=== PATIENT | male | born 1985 | race Caucasian/White ===

== ENCOUNTER 2020-11-06 07:35 | Inpatient (IN) | payer SELFPAY ==
[2020-11-06 08:03] LABS: Absolute Lymphocytes (CBC) 1.1 K/uL (0.7-4.9); Basophils % 0.3 % (0-1.3); Hematocrit 44.9 % (39.6-49.0); MPV 8.4 fL (7.6-11.3); RBC Red Blood Cell Count 5.04 M/uL (4.33-5.43)
[2020-11-06] MEDS ORDERED: NA CHLORIDE 0.9% 1,000 ML ONE ×3 (08:09→17:50)
[2020-11-06] MEDS ORDERED: LORazepam 2 MG/ML VIAL ONE ×3 (08:18→22:25)
[2020-11-06 08:29] LABS: ALT/SGPT 41 U/L (12-78); AST/SGOT 34 U/L (15-37); Albumin 4.5 g/dL (3.4-5.0); Alkaline Phosphatase 95 U/L (45-117); BUN Blood Urea Nitrogen 11 mg/dL (7-18); Bicarbonate 25 mmol/L (21-32); Bilirubin Direct 0.1 mg/dL (0-0.2); Bilirubin Total 0.4 mg/dL (0.2-1.0); Glucose Level 140 mg/dL (74-106); Potassium 3.4 mmol/L (3.5-5.1); Protein, Total 7.2 g/dL (6.4-8.2); Sodium Level 139 mmol/L (136-145)
--- NOTE | 2020-11-06 08:29 | RAD REPORT ---
EXAM DESCRIPTION: CT - Head Brain Wo Cont - 11/06/2020 8:19 am CLINICAL HISTORY: Confused;Seizure Headache, drowsiness and seizure COMPARISON: No comparisons TECHNIQUE: All CT scans are performed using dose optimization technique as appropriate and may inclu de automated exposure control or mA/KV adjustment according to patient size. FINDINGS: No intracranial hemorrhage, hydrocephalus or extra-axial fluid collection.No areas of brai n edema or evidence of midline shift. Polypoid mucosal thickening involves the right maxillary sinus, with expansion of the medial wall exp anding into the right nasal cavity. Anterior right ethmoid air cells also opacified. The calvarium is intact. IMPRESSION: No acute intracranial abnormality. Polypoid sinus disease as detailed.
[2020-11-06 09:59] LABS: CSF Glucose 68 mg/dL (40-70)
[2020-11-06] MEDS ORDERED: MIDAZOLAM HCL 2 MG/2 ML INJ ONE ×2 (10:09→10:42)
[2020-11-06 10:16] LABS: Urine Blood Trace-intact (Negative); Urine Glucose Negative (Negative); Urine Protein Negative (Negative)
[2020-11-06 10:19] LABS: Protime INR 1.03
[2020-11-06 10:29] LABS: Barbiturates NEGATIVE (NEGATIVE); Benzodiazepines NEGATIVE (NEGATIVE); Cocaine NEGATIVE (NEGATIVE); METHAMPHETAM NEGATIVE (NEGATIVE); Methadone NEGATIVE (NEGATIVE); Opiates NEGATIVE (NEGATIVE); Phencyclidine NEGATIVE (NEGATIVE); THC Cannibis NEGATIVE (NEGATIVE)
--- NOTE | 2020-11-06 10:41 | ER ---
Nurse's Notes [facility] Name: Willis Hinojosa Age: 35 yrs Sex: Male : 1985 Arrival Date: 11/06/2020 Time: 07:35 Bed 27 Private MD: Diagnosis: Altered mental status, unspecified;Opioid dependence with withdrawal-Kratom;Delirium due to known physiological condition Presentation: 11/06 07:47 Coronavirus screen: Client denies travel out of the [place] in the last 14 days. At this ll1 time, the client does not indicate any symptoms associated with coronavirus-19. Ebola Screen: Patient denies travel to an Ebola-affected area in the 21 days before illness onset. No acute neurological deficit is noted. Initial Sepsis Screen: Does the patient meet any 2 criteria? HR > 90 bpm. No. Patient's initial sepsis screen is negative. Does the patient have a suspected source of infection? No. Patient's initial sepsis screen is negative. Risk Assessment: Do you want to hurt yourself or someone else? Patient reports no desire to harm self or others. Onset of symptoms was November 06, 2020. 07:47 Method Of Arrival: Ambulatory ll1 07:47 Acuity: JADA 2 ll1 07:55 Chief complaint: Spouse and/or significant other states: Ex states they were [facility] camping overnight. At 5 am he awoke and wandered off [place] a swamp. When she found him he was seizing, states it last about 1.5 minutes. Very shaky, hard to walk, slurred speech, not acting right since. Reports taking 5 pills of Benadryl for his chronic hives. Denies drug use. Stroke Activation: Symptom onset < 3 hours Physician: Stroke Attending; Name: ; Notified At: ; Arrived At: Physician: Chief Stroke Resident; Name: ; Notified At: ; Arrived At: Physician: Stroke Resident; Name: ; Notified At: ; Arrived At: Physician: ED Attending; Name: ; Notified At: ; Arrived At: Physician: ED Resident; Name: ; Notified At: ; Arrived At: 07:47 n/a ll1 Historical: - Allergies: 07:48 No Known Allergies; ll1 - PMHx: 07:48 Seizure; ll1 - PSHx: 07:48 Tonsillectomy; ll1 - Immunization history:: Flu vaccine is not up to date. - Social history:: Smoking status: Patient reports the use of cigarette tobacco products, smokes one pack cigarettes per day. Patient uses street drugs, marijuana, Kratom daily. - Family history:: not pertinent. - Hospitalizations: : No recent hospitalization is reported. Screenin:15 Abuse screen: Denies threats or abuse. Denies injuries from another. Nutritional sv screening: No deficits noted. Tuberculosis screening: No symptoms or risk factors identified. Fall Risk None identified. Assessment: 07:52 General: Appears in no apparent distress. comfortable, slender, well developed, sv Behavior is calm, cooperative, appropriate for age. Pain: Denies pain. Neuro: Level of Consciousness is awake, alert, obeys commands, Oriented to person, place, time, situation, Moves all extremities. Full function Speech is normal, Pupils are pinpoint. Neuro: Seizure activity reported prior to arrival. stated by girlfriend, he has grand mal seizures. Cardiovascular: Patient's skin is warm and dry. Rhythm is sinus tachycardia. Respiratory: Airway is patent Respiratory effort is even, unlabored, Respiratory pattern is regular, symmetrical. Derm: Skin is pink, warm \T\ dry. Sand noted all over body. [place] the [place]. Musculoskeletal: Circulation, motion, and sensation intact. Range of motion: intact in all extremities. 08:40 Reassessment: Patient appears in no apparent distress at this time. No changes from sv previously documented assessment. Pt attempting to leave, saying that he wants to go to [facility]. Pt reoriented and able to follow commands at this time. Tio christie at the bedside as a sitter. 09:33 Reassessment: Patient appears in no apparent distress at this time. No changes from sv previously documented assessment. Pt remains confused. Girlfriend is at the bedside. Pt having to be reoriented and is able to follow commands. 10:07 Reassessment: Patient appears in no apparent distress at this time. No changes from sv previously documented assessment. 11:00 Reassessment: Patient appears in no apparent distress at this time. No changes from sv previously documented assessment. Girlfriend at the bedside. 12:06 Reassessment: Dr Martins at the bedside. sv 13:00 Reassessment: Patient appears in no apparent distress at this time. No changes from sv previously documented assessment. 14:05 Reassessment: Patient appears in no apparent distress at this time. No changes from sv previously documented assessment. Vital Signs: 07:47 BP 140 / 105; Pulse 138; Resp 24; Temp 98.2; Pulse Ox 99% ; Pain 0/10; ll1 07:53 BP 134 / 92; Pulse 123 MON; Resp 27; Pulse Ox 100% on R/A; sv 09:26 BP 128 / 74; Pulse 99; Resp 25; Pulse Ox 100% on R/A; sv 10:36 BP 128 / 74; Pulse 100; Resp 20; Pulse Ox 98% on R/A; ph 10:45 BP 129 / 79; Pulse 83; Resp 23; Pulse Ox 99% ; sv 12:00 BP 121 / 77; Pulse 82; Resp 16; Pulse Ox 99% ; sv 14:15 BP 118 / 78; Pulse 80; Resp 16; Pulse Ox 99% ; sv 07:53 Sinus tachycardia sv ED Course: 07:35 Patient arrived in ED. ds1 07:36 Chilo Walker MD is Attending Physician. rn 07:43 Bekah Alexander RN is Primary Nurse. sv 07:47 Arm band placed on. ll1 07:48 Triage completed. ll1 07:49 Patient has correct armband on for positive identification. Bed in low position. Call ll1 light in reach. Side rails up X2. Seizure precautions initiated. youth nutritional monitor on. Pulse ox on. NIBP on. 07:50 EKG done, by ED staff, reviewed by Chilo Walker MD. Inserted saline lock: 20 gauge in sv right antecubital area, using aseptic technique. ,using aseptic technique. done by [facility] tech Blood collected. 07:53 CBC with Diff Sent. sv 07:53 Basic Metabolic Panel Sent. sv 07:53 Acetaminophen Sent. sv 08:13 COVID swab sent to lab. sv 08:19 CT Head Brain wo Cont In Process Unspecified. EDMS 09:15 Assist provider with lumbar puncture: Set up LP tray. Performed by Chilo Walker MD CSF sv is clear. Sample collected. Sample sent to lab. Puncture site dressed with band aid, Procedure was successful. Patient tolerated poorly. 09:17 Csf Culture Sent. sv 09:17 Fluid Cell Count,Body Sent. sv 09:25 Lab(s) recollected, by ED staff, sent to lab. sv 09:35 Awaiting lab results. sv 10:40 Tyshawn Martins is Hospitalizing Provider. rn 12:24 Awaiting bed assignment. sv 14:05 Patient admitted, IV remains in place. intact. sv 14:36 Report given to Yesica TRACY. sv 19:03 Primary Nurse role handed off by Bekah Alexander RN sv Administered Medications: 07:53 CANCELLED (Duplicate Order): Ativan (LORazepam) 1 mg IVP once rn 07:53 Drug: NS 0.9% 1000 ml Route: IV; Rate: 1000 ml; Site: right antecubital; sv 10:42 Follow up: Response: No adverse reaction; IV Status: Completed infusion; IV Intake: sv 1000ml 07:59 Drug: NS 0.9% 1000 ml Route: IV; Rate: 1000 ml; Site: right antecubital; sv 10:42 Follow up: Response: No adverse reaction; IV Status: Completed infusion; IV Intake: sv 1000ml 07:59 Drug: Ativan (LORazepam) 2 mg Route: IVP; Site: right antecubital; sv 09:15 Follow up: Response: No adverse reaction sv 08:56 Drug: Ativan (LORazepam) 2 mg Route: IVP; Site: right antecubital; sv 09:15 Follow up: Response: No adverse reaction sv 09:47 Drug: Versed (midazolam) 2 mg Route: IVP; Site: right antecubital; sv 10:21 Follow up: Response: No adverse reaction sv 10:21 Drug: Versed (midazolam) 2 mg Route: IVP; Site: right antecubital; sv 10:41 Follow up: Response: No adverse reaction sv Intake: 10:42 IV: 1000ml; Total: 1000ml. sv 10:42 IV: 1000ml; Total: 2000ml. sv Outcome: 10:40 Decision to Hospitalize by Provider. rn 14:36 Admitted to ER Hold. Please see [facility] for further documentation. sv 14:36 Condition: stable 14:36 Instructed on the need for admit. 11/07 13:31 Patient left the ED. aa5 Signatures: Dispatcher [employer] EDMS Bekah Alexander RN RN sv Sanford, Demi ds1 Chilo Walker MD MD rn Calderon, Audri, RN RN aa5 Swati Nation RN RN ss Shasha Cisneros RN RN ph Lewis, Lynsay, DEMARCUS RN ll1 Corrections: (The following items were deleted from the chart) 11/06 07:50 07:47 BP 140 / 105; Pulse 138bpm; Resp 18bpm; Pulse Ox 99%; Temp 99.1F; Pain 0/10; ll1 07:58 07:47 BP 140 / 105; Pulse 138bpm; Resp 18bpm; Pulse Ox 99%; Temp 98.2F; Pain 0/10; ss ll1 09:35 08:40 Reassessment: Patient appears in no apparent distress at this time. No changes sv from previously documented assessment. Pt attempting to leave, saying that he wants to go to [facility]. Pt reoeriented and able to follow commands at this time. Tio christie at the bedside as a sitter. sv 11:06 09:26 Social history: Patient uses street drugs, marijuana, Crater daily, sv sv
--- NOTE | 2020-11-06 10:42 | EDPHYS ---
Physician Documentation [facility] Name: Willis Hinojosa Age: 35 yrs Sex: Male : 1985 Arrival Date: 11/06/2020 Time: 07:35 Bed 27 Private MD: ED Physician Chilo Walker HPI: 11/06 07:53 This 35 yrs old Male presents to ER via Ambulatory with complaints of AMS, Slurred rn Speech, Probable Seizure - Prior to Arrival. 07:54 The patient presents with confusion, disorientation, seizure activity. Onset: The rn symptoms/episode began/occurred 3 hour(s) ago. Possible causes: unknown. Associated signs and symptoms: Pertinent positives: confusion, diaphoresis, seizure, Pertinent negatives: abdominal pain, chest pain, headache, shortness of breath, vomiting. Current symptoms: In the emergency department the patient's symptoms are unchanged from the initial presentation. It is unknown whether or not the patient has had similar symptoms in the past. The patient has not recently seen a physician. Ex- reports they were camping, got here yesterday afternoon, was acting ok, this AM around 0500 was confused, altered, sweating, shaking, then noticed 1 maybe 2 seizures, generalized. Has had 1 seizure before in past. Ex- reports patient with hx of drug use and addiction, drinks frequently but not daily, uses "a lot of Kratom everyday", unknown last use, and uses "a lot of benadryl everyday" for unknown hives. Reports found an empty bottle of benadryl today, patient reports took about 5 because of itching. Denies suicidal or homicidal ideation.. Historical: - Allergies: 07:48 No Known Allergies; ll1 - PMHx: 07:48 Seizure; ll1 - PSHx: 07:48 Tonsillectomy; ll1 - Immunization history:: Flu vaccine is not up to date. - Social history:: Smoking status: Patient reports the use of cigarette tobacco products, smokes one pack cigarettes per day. Patient uses street drugs, marijuana, Kratom daily. - Family history:: not pertinent. - Hospitalizations: : No recent hospitalization is reported. ROS: 07:54 Constitutional: Negative for fever, chills, and weight loss, Eyes: Negative for injury, rn pain, redness, and discharge, ENT: Negative for injury, pain, and discharge, Neck: Negative for injury, pain, and swelling, Cardiovascular: Negative for chest pain, and edema, Respiratory: Negative for shortness of breath, cough, wheezing, and pleuritic chest pain, Abdomen/GI: Negative for abdominal pain, nausea, vomiting, diarrhea, and constipation, Back: Negative for injury and pain, : Negative for injury, bleeding, discharge, and swelling, MS/Extremity: Negative for injury and deformity, Skin: Negative for injury, rash, and discoloration, Neuro: Negative for numbness, tingling 07:54 All other systems are negative. rn Exam: 07:54 Constitutional: This is a well developed, well nourished patient who is awake, alert, rn seems delirious Head/Face: Normocephalic, atraumatic. Eyes: Pupils 6mm, reactive, no nystagmus ENT: dry MM Neck: Trachea midline, no masses palpated, and no cervical lymphadenopathy. Supple, full range of motion without nuchal rigidity, or vertebral point tenderness. No Meningismus. Cardiovascular: Tachycardic, regular Respiratory: + tachypnea, no retractions, speaking full sentences Abdomen/GI: soft, non-tender Skin: warm, dry MS/ Extremity: Pulses equal, no cyanosis. Neurovascular intact. Full, normal range of motion. Equal circumference. Neuro: Awake and alert, GCS 15, oriented to person, time, thinks is in [place]. Cranial nerves II-XII grossly intact. Motor strength 5/5 in all extremities. Sensory grossly intact. + tongue fasciculations and tremors in bilateral upper extremities. 08:06 ECG was reviewed by the Attending Physician. rn Vital Signs: 07:47 BP 140 / 105; Pulse 138; Resp 24; Temp 98.2; Pulse Ox 99% ; Pain 0/10; ll1 07:53 BP 134 / 92; Pulse 123 MON; Resp 27; Pulse Ox 100% on R/A; sv 09:26 BP 128 / 74; Pulse 99; Resp 25; Pulse Ox 100% on R/A; sv 10:36 BP 128 / 74; Pulse 100; Resp 20; Pulse Ox 98% on R/A; ph 10:45 BP 129 / 79; Pulse 83; Resp 23; Pulse Ox 99% ; sv 12:00 BP 121 / 77; Pulse 82; Resp 16; Pulse Ox 99% ; sv 14:15 BP 118 / 78; Pulse 80; Resp 16; Pulse Ox 99% ; sv 07:53 Sinus tachycardia sv Procedures: 09:15 Lumbar Puncture: Patient placed in left lateral decubitus position. Prepped with rn Betaterry. Draped using sterile technique. Collected 8 ml's of clear fluid. Sample sent to lab. Puncture site dressed with band aid, Patient tolerated well. Opening pressure 23. MDM: 07:37 Patient medically screened. rn 08:00 Differential Diagnosis: electrolyte abnormality, alcohol intoxication, hypoglycemia, rn overdose, seizure, UTI, volume depletion, withdrawal, kratom withdrawal, benadryl overdose. 08:52 ED course: Pt improving with ativan and fluids, elevated WBC, spoke with patient rn regarding LP given seizure and elevated WBC, no family in room to consent, patient altered, considered emergent consent.. 10:19 ED course: Pt still very agitated despite benzos, improving HR to low 90s and BP rn currently down to 128/74, still arguing with ex-, trying to get out of bed, pull out IV. . 10:38 Data reviewed: vital signs, nurses notes, lab test result(s), EKG, radiologic studies, rn CT scan, and as a result, I will admit patient. Counseling: I had a detailed discussion with the patient and/or guardian regarding: the historical points, exam findings, and any diagnostic results supporting the discharge/admit diagnosis, lab results, radiology results, the need for further work-up and treatment in the hospital. Response to treatment: the patient's symptoms have mildly improved after treatment, and as a result, I will admit patient. Admission orders: after a detailed discussion of the patient's condition and case, the admit orders are written by me. ED course: Pt with grossly neg w/u thus far, CSF partially resulted but normal glucose and TP, afebrile, elevated WBC, clean drug screen. Most likely withdrawal from daily heavy kratom use and superimposed benadryl that he takes significant amounts daily. Will admit to hospitalist service for further care as is not back to baseline. . 11/06 07:51 Order name: Acetaminophen rn 11/06 07:51 Order name: Basic Metabolic Panel rn 11/06 07:51 Order name: CBC with Diff rn 11/06 07:51 Order name: ETOH Level; Complete Time: 08:33 rn 11/06 07:51 Order name: Hepatic Function; Complete Time: 08:33 rn 11/06 07:51 Order name: PT-INR; Complete Time: 10:37 rn 11/06 07:51 Order name: Ptt, Activated; Complete Time: 10:37 rn 11/06 07:51 Order name: Salicylate; Complete Time: 08:33 rn 11/06 07:51 Order name: Urine Drug Screen; Complete Time: 10:37 rn 11/06 07:51 Order name: Procalcitonin; Complete Time: 08:49 rn 11/06 07:51 Order name: Acetaminophen Level; Complete Time: 08:33 EDMS 11/06 07:51 Order name: Basic Metabolic Panel; Complete Time: 08:33 EDMS 11/06 07:51 Order name: CBC with Automated Diff EDMS 11/06 08:04 Order name: Glucose, Ancillary Testing; Complete Time: 08:23 EDMS 11/06 08:23 Order name: Manual Differential EDPR 11/06 09:15 Order name: Csf Culture rn 11/06 09:15 Order name: Fluid Cell Count,Body rn 11/06 09:15 Order name: Spinal Fluid Profile; Complete Time: 11:16 rn 11/06 09:16 Order name: Body Fluid Cell Count; Complete Time: 11:16 EDMS 11/06 09:29 Order name: Strep; Complete Time: 10:19 rn 11/06 09:46 Order name: SARS-COV-2 RT PCR; Complete Time: 10:08 EDMS 11/06 10:14 Order name: Throat Culture EDMS 11/06 10:16 Order name: Urine Dipstick-Ancillary; Complete Time: 10:19 EDMS 11/07 03:56 Order name: CBC with Automated Diff EDMS 11/07 04:09 Order name: Comprehensive Metabolic Panel EDMS 11/07 04:09 Order name: Phosphorus EDMS 11/07 04:09 Order name: Magnesium EDMS 11/07 04:09 Order name: Thyroid Stimulating Hormone EDMS 11/06 07:51 Order name: EKG; Complete Time: 07:51 rn 11/06 07:51 Order name: EKG - Nurse/Tech; Complete Time: 07:53 rn 11/06 07:51 Order name: IV Saline Lock; Complete Time: 07:53 rn 11/06 07:51 Order name: Labs collected and sent; Complete Time: 07:53 rn 11/06 07:51 Order name: Urine Dipstick-Ancillary (obtain specimen); Complete Time: 10:41 rn 11/06 07:53 Order name: CT Head Brain wo Cont; Complete Time: 08:33 rn 11/06 08:53 Order name: Lumbar Puncture Setup; Complete Time: 08:56 rn 11/06 09:13 Order name: Labs - recollect needed: recollect the coag tube; Complete Time: 09:35 eb 11/06 09:15 Order name: LP Consents; Complete Time: 09:17 rn 11/07 12:16 Order name: Basic Metabolic Panel EDMS EC:06 Rate is 129 beats/min. Rhythm is regular. QRS [place] is Normal. MI interval is normal. rn QRS interval is normal. QT interval is normal. No Q waves. T waves are Normal. No ST changes noted. Clinical impression: Sinus tachycardia. Interpreted by me. Reviewed by me. Administered Medications: 07:53 CANCELLED (Duplicate Order): Ativan (LORazepam) 1 mg IVP once rn 07:53 Drug: NS 0.9% 1000 ml Route: IV; Rate: 1000 ml; Site: right antecubital; sv 10:42 Follow up: Response: No adverse reaction; IV Status: Completed infusion; IV Intake: sv 1000ml 07:59 Drug: NS 0.9% 1000 ml Route: IV; Rate: 1000 ml; Site: right antecubital; sv 10:42 Follow up: Response: No adverse reaction; IV Status: Completed infusion; IV Intake: sv 1000ml 07:59 Drug: Ativan (LORazepam) 2 mg Route: IVP; Site: right antecubital; sv 09:15 Follow up: Response: No adverse reaction sv 08:56 Drug: Ativan (LORazepam) 2 mg Route: IVP; Site: right antecubital; sv 09:15 Follow up: Response: No adverse reaction sv 09:47 Drug: Versed (midazolam) 2 mg Route: IVP; Site: right antecubital; sv 10:21 Follow up: Response: No adverse reaction sv 10:21 Drug: Versed (midazolam) 2 mg Route: IVP; Site: right antecubital; sv 10:41 Follow up: Response: No adverse reaction sv Disposition Summary: 11/06/20 10:40 Hospitalization Ordered Hospitalization Status: Inpatient Admission rn Provider: Tyshawn Martins rn Condition: Stable rn Problem: new rn Symptoms: have improved rn Bed/Room Type: Standard rn Location: [facility] ER HOLD(11/06/20 13:46) Room Assignment: ERHOLD-(11/06/20 13:46) ss Diagnosis - Altered mental status, unspecified rn - Opioid dependence with withdrawal - Wanda rn - Delirium due to known physiological condition rn Forms: - Medication Reconciliation Form rn - SBAR form rn Signatures: Dispatcher [employer] EDPR Bekah Alexander RN RN Chilo Walker MD MD rn Smirch, Shelby, RN RN Crystal Max Lynsay, RN RN ll1 Corrections: (The following items were deleted from the chart) 07:53 07:51 Ativan (LORazepam) 1 mg IVP once ordered. rn rn 08:56 08:07 CORONAVIRUS+MR.LAB.BRZ ordered. EDPR EDMS 11:06 09:26 Social history: Patient uses street drugs, marijuana, Crater daily, sv sv 13:46 10:40 Intensive Care Unit rn ss 13:46 10:40 rn ss
[2020-11-06 10:43] LABS: Body Fluid Source CSF; Color of fluid Colorless (COLORLESS)
[2020-11-06 10:44] LABS: Appearance CLEAR (CLEAR)
[2020-11-06 10:45] LABS: Body Fluid WBC 1 /mm^3
[2020-11-06 10:46] LABS: Appearance CLEAR (CLEAR); Body Fluid Source CSF; Color of fluid Colorless (COLORLESS)
[2020-11-06 10:47] LABS: Body Fluid WBC 1 /mm^3
--- NOTE | 2020-11-06 12:47 | P.HP ---
Certification for Inpatient Patient admitted to: Observation With expected LOS: <2 Midnights Practitioner: I am a practitioner with admitting privileges, knowledge of patient current condition, hospital course, and medical plan of care. Services: Services provided to patient in accordance with Admission requirements found in Title 42 Section 412.3 of the Code of Federal Regulations Patient History Date of Service: 11/06/20 Reason for admission: Altered mental status History of Present Illness: 35-year-old gentleman with a history of multiple substance abuse was brought to the emergency department with a complaint of altered mental status, slurred speech and suspected to have had seizures. Patient was confused during my examination in the ED and could not provide reliable history. His ex reports he has been abusing opioid he was using Kratom as a substitute for opioid addiction. His urine toxicology screen is negative. CT head negative. The ED physician performed a lumbar puncture. CSF studies unremarkable. Blood work also significant for severe leukocytosis. Patient suspected to be withdrawing from opioid or other substance. He is admitted for further management. Allergies No Known Allergies Allergy (Unverified 11/06/20 15:39) Home Medications: Diphenhydramine HCl [Benadryl Allergy] 1 tab PO PRN 11/06/20 - Past Medical/Surgical History -: Polysubstance abuse -: Tonsillectomy - Family History Unable to provide history due to confusion History Unknown: Yes - Social History Alcohol use: Yes CD- Drugs: Yes Review of Systems is unable to be obtained Physical Examination - Physical Exam General: In no apparent distress, Oriented x3, Confused HEENT: Atraumatic, Normocephalic, PERRLA, Mucous membr. moist/pink, EOMI, Sclerae nonicteric Neck: Supple, JVD not distended, No Thyromegaly Respiratory: Clear to auscultation bilaterally, Normal air movement Cardiovascular: No edema, Regular rate/rhythm, Normal S1 S2 Capillary refill: <2 Seconds Gastrointestinal: Normal bowel sounds, Soft and benign, Non-distended, No tenderness Musculoskeletal: No clubbing, No swelling, No tenderness Integumentary: No rashes, No erythema Neurological: Normal speech, Normal strength at 5/5 x4 extr, Cranial nerves 3-12 intact Lymphatics: No axilla or inguinal lymphadenopathy - Studies Laboratory Data (last 24 hrs) 11/06/20 09:57: PT 11.9, INR 1.03, APTT 26.8 11/06/20 07:51: WBC 22.40 H*, Hgb 15.2, Hct 44.9, Plt Count 200 11/06/20 07:51: Sodium 139, Potassium 3.4 L, BUN 11, Creatinine 1.00, Glucose 140 H, Total Bilirubin 0.4, AST 34, ALT 41, Alkaline Phosphatase 95 Microbiology Data (last 24 hrs): 11/06/20 09:31 Throat Group A Streptococcus Rapid Screen - Final Assessment and Plan - Problems (Diagnosis) (1) Acute metabolic encephalopathy Current Visit: Yes Status: Acute (2) Substance withdrawal delirium Current Visit: Yes Status: Acute (3) Leukocytosis Current Visit: Yes Status: Acute - Plan Place under observation. Continue supportive measures started in the ED with IV normal saline. Neuro checks Ativan IV p.r.n. for agitation and seizures. Monitor electrolytes. Monitor CBC follow leukocytosis. Obtain blood culture Empiric IV antibiotics - Advance Directives Does patient have a Living Will: No Does patient have a Durable POA for Healthcare: No
[2020-11-06 13:25] LABS: Blood Morphology Comment NOT SEEN (NOT SEEN); Platelet Estimate ADEQ
[2020-11-06 15:39] VITALS: BMI 26.4
[2020-11-06] MEDS ORDERED: ONDANSETRON 4 MG/2 ML VIAL IV PRN (15:49)
[2020-11-06] MEDS ORDERED: LORazepam 2 MG/ML VIAL IV PRN (15:49)
[2020-11-06] MEDS: NA CHLORIDE 0.9% 1,000 ML IV SCH (15:49)
[2020-11-06] MEDS: NICOTINE 21 MG/PAT TD SCH (17:12)
[2020-11-06] MEDS ORDERED: NICOTINE 21 MG/PAT TD ONE (17:50)
[2020-11-06] MEDS ORDERED: VANCOMYCIN 2 GM in NA CHLORIDE 0.9% 500 ML IVPB ONE (21:00)
[2020-11-06] MEDS ORDERED: POTASSIUM 25 MEQ EFFERV TAB PO ONE (21:00)
[2020-11-06] MEDS: CEFEPIME/SWI 1gm 10 ML IV SCH (21:00)
[2020-11-06] MEDS ORDERED: VANCOMYCIN 1.25 GM in NA CHLORIDE 0.9% 250 ML IVPB SCH (21:00)
[2020-11-06] MEDS ORDERED: CEFEPIME 1 GM/VIAL IV SCH (21:00)
[2020-11-06] MEDS ORDERED: NA CHLORIDE 0.9% 0 ML ONE (21:11)
[2020-11-06] MEDS ORDERED: VANCOMYCIN 1 GM/VIAL ONE (21:11)
[2020-11-06] MEDS ORDERED: POTASSIUM 25 MEQ EFFERV TAB ONE (21:11)
[2020-11-06] MEDS ORDERED: CEFEPIME/SWI 1gm 10 ML ONE (21:12)
[2020-11-06] MEDS ORDERED: NA CHLORIDE 0.9% 500 ML ONE (22:17)
[2020-11-07] MEDS: NA CHLORIDE 0.9% 1,000 ML IV SCH ×3 (01:30→09:32)
[2020-11-07 03:47] LABS: Basophils % 0.4 % (0-1.3); Hematocrit 40.1 % (39.6-49.0); Lymphocytes % 18.8 % (15.3-44.8); MPV 8.3 fL (7.6-11.3); RBC Red Blood Cell Count 4.47 M/uL (4.33-5.43)
[2020-11-07 04:09] LABS: ALT/SGPT 28 U/L (12-78); AST/SGOT 20 U/L (15-37); Albumin 3.7 g/dL (3.4-5.0); Alkaline Phosphatase 73 U/L (45-117); BUN Blood Urea Nitrogen 10 mg/dL (7-18); Bicarbonate 25 mmol/L (21-32); Bilirubin Total 0.7 mg/dL (0.2-1.0); Glucose Level 85 mg/dL (74-106); Magnesium 2.2 mg/dL (1.8-2.4); Phosphorus 2.5 mg/dL (2.5-4.9); Potassium 3.6 mmol/L (3.5-5.1); Protein, Total 6.2 g/dL (6.4-8.2); Sodium Level 142 mmol/L (136-145); Thyroid Stimulating Hormone 0.374 uIU/mL (0.360-3.740)
[2020-11-07] MEDS ORDERED: CEFEPIME/SWI 1gm 10 ML ONE (08:51)
[2020-11-07] MEDS ORDERED: NICOTINE 21 MG/PAT TD ONE (08:51)
[2020-11-07] MEDS ORDERED: VANCOMYCIN 1.5 GM in NA CHLORIDE 0.9% 500 ML IVPB SCH (09:00)
[2020-11-07] MEDS: CEFEPIME/SWI 1gm 10 ML IV SCH (09:30)
[2020-11-07] MEDS: NICOTINE 21 MG/PAT TD SCH (09:30)
[2020-11-07] MEDS ORDERED: NA CHLORIDE 0.9% 1,000 ML ONE (09:54)
--- NOTE | 2020-11-07 11:16 | P.DS ---
Admission Date: 11/06/20 Discharge Date: 11/07/20 Disposition: ROUTINE DISCHARGE Discharge Condition: FAIR Reason for Admission: Altered mental status - Problems (1) Acute metabolic encephalopathy Current Visit: Yes Status: Acute (2) Substance withdrawal delirium Current Visit: Yes Status: Acute (3) Leukocytosis Current Visit: Yes Status: Acute Brief History of Present Illness: 35-year-old gentleman with a history of multiple substance abuse was brought to the emergency department with a complaint of altered mental status, slurred speech and suspected to have had seizures. Patient was confused during my exam ination in the ED and could not provide reliable history. His ex reports he has been abusing opioid he was using Kratom as a substitute for opioid addiction. His urine toxicology screen is negative. CT head negative. The ED physician performed a lumbar puncture. CSF studies unremarkable. Blood work also significant for severe leukocytosis. Patient suspected to be withdrawing from opioid or other substance. He was admitted for further management. Hospital Course: Patient admitted to the medical floor and treated with supportive measures with IV fluid. Also started on antibiotics for leukocytosis. Patient became fully awake next day, alert and oriented and without any complain. Leukocytosis resolved. Patient denied any suicidal ideation. He reports history of opioid abuse. He aslo uses Kratom for pain. Patient advised to quit abusing illicit substances. He acknowleged and agrees to quit. Patient deemed stable for discharge. Vital Signs/Physical Exam: Temp Pulse Resp BP Pulse Ox 98 F 81 18 124/70 97 11/07/20 04:00 11/07/20 04:00 11/07/20 04:00 11/07/20 04:00 11/07/20 04:00 General: Alert, In no apparent distress, Oriented x3 HEENT: Mucous membr. moist/pink Neck: Supple, JVD not distended Respiratory: Clear to auscultation bilaterally, Normal air movement Cardiovascular: No edema, Regular rate/rhythm, Normal S1 S2 Capillary refill: <2 Seconds Gastrointestinal: Normal bowel sounds, Soft and benign, Non-distended, No tenderness Musculoskeletal: No swelling, No tenderness Integumentary: No rashes, No erythema Neurological: Normal gait, Normal speech, Normal strength at 5/5 x4 extr, Cranial nerves 3-12 intact Laboratory Data at Discharge: WBC 10.60 K/uL (4.3-10.9) D 11/07/20 03:03 Hgb 13.7 g/dL (13.6-17.9) 11/07/20 03:03 Hct 40.1 % (39.6-49.0) 11/07/20 03:03 Plt Count 239 K/uL (152-406) 11/07/20 03:03 PT 11.9 SECONDS (9.5-12.5) 11/06/20 09:57 INR 1.03 11/06/20 09:57 APTT 26.8 SECONDS (24.3-36.9) 11/06/20 09:57 Sodium Cancelled 11/07/20 Unknown Potassium Cancelled 11/07/20 Unknown BUN Cancelled 11/07/20 Unknown Creatinine Cancelled 11/07/20 Unknown Glucose Cancelled 11/07/20 Unknown Phosphorus 2.5 mg/dL (2.5-4.9) 11/07/20 03:03 Magnesium 2.2 mg/dL (1.8-2.4) 11/07/20 03:03 Total Bilirubin 0.7 mg/dL (0.2-1.0) 11/07/20 03:03 AST 20 U/L (15-37) 11/07/20 03:03 ALT 28 U/L (12-78) 11/07/20 03:03 Alkaline Phosphatase 73 U/L (45-117) 11/07/20 03:03 Home Medications: Diphenhydramine HCl [Benadryl Allergy] 1 tab PO PRN 11/06/20 Diet: Regular Activity: Ad senthil Followup: NONE,NONE [Primary Care Provider] - Time spent managing pt's care (in minutes): 35
[2020-11-07 12:16] LABS: BUN Blood Urea Nitrogen 10 mg/dL (7-18); Bicarbonate 27 mmol/L (21-32); Glucose Level 138 mg/dL (74-106); Sodium Level 142 mmol/L (136-145)
[2020-11-07 13:15] VITALS: O2SAT 100
[2020-11-07 13:16] VITALS: BP 136/69; TEMP 98
== END 2020-11-07 12:30 | disposition home or self-care (01) | DRG 896 ==
LOC: ER 07:35 → ERHOLD 12:35
PROVIDERS: ADMIT Internal Medicine; ATTEND Internal Medicine
PROC: 009U3ZX Drainage of Spinal Canal, Percutaneous Approach, Diagnostic (ICD-10-PCS; principal; 2020-11-06)
DX: F11.23 Opioid dependence with withdrawal (principal); G93.41 Metabolic encephalopathy; F05 Delirium due to known physiological condition; F17.210 Nicotine dependence, cigarettes, uncomplicated; D72.829 Elevated white blood cell count, unspecified; Z79.899 Other long term (current) drug therapy; Z20.822 Contact with and (suspected) exposure to COVID-19
CPT/HCPCS: 36415; 62270; 70450; 80048; 80053; 80076; 80307; 80320; 80329; 81003; 82945; 82947; 83735; 84100; 84145; 84157; 84443; 85025; 85610; 85730; 87040; 87070; 87081; 89050; 93005; 96361; 96374; 96375; 99285; J0692; J2250; J3370; J7030; J7040; J7050; U0003